=== PATIENT | female | born 1975 | race Caucasian/White ===

== ENCOUNTER 2016-06-28 22:00 | Emergency (ER) | payer OTHER ==
[2016-06-29 01:52] LABS: HEMOGLOBIN 11.8 gm/dl (12.3-15.3); RED BLOOD COUNT 3.74 M/UL (4.00-5.10); WHITE BLOOD COUNT 4.1 K/UL (4.5-11.0)
[2016-06-29 02:17] LABS: BUN/CREATININE RATIO 13 (0-10)
== END 2016-06-29 05:00 | disposition home or self-care (01) ==
LOC: ER1 22:00
PROVIDERS: Family Medicine
DX: J10.1 Influenza due to other identified influenza virus with other respiratory manifestations (principal); E03.9 Hypothyroidism, unspecified; M32.9 Systemic lupus erythematosus, unspecified; Z79.899 Other long term (current) drug therapy
CPT/HCPCS: 36415; 70450; 71010; 80053; 81001; 82550; 82553; 83605; 83874; 84484; 84703; 85025; 87077; 87086; 87186; 96361; 96372; 96374; 96375; 99284; J2270; J2405; J7050; Q9962

== ENCOUNTER 2016-08-20 10:28 | Emergency (ER) | payer OTHER ==
[2016-08-20 12:02] LABS: HEMOGLOBIN 12.6 gm/dl (12.3-15.3); RED BLOOD COUNT 4.03 M/UL (4.00-5.10); WHITE BLOOD COUNT 8.6 K/UL (4.5-11.0)
[2016-08-20 12:22] LABS: BUN/CREATININE RATIO 17 (0-10)
== END 2016-08-20 16:07 ==
LOC: ER1 10:28
PROVIDERS: Emergency Medicine
DX: R51 Headache (principal); H70.93 Unspecified mastoiditis, bilateral; E16.2 Hypoglycemia, unspecified; H53.2 Diplopia; E03.9 Hypothyroidism, unspecified; M19.90 Unspecified osteoarthritis, unspecified site; M06.9 Rheumatoid arthritis, unspecified; Z79.899 Other long term (current) drug therapy
CPT/HCPCS: 36415; 70551; 80048; 85025; 87040; 96374; 96375; 99285; J0696; J2060; J7050

== ENCOUNTER 2021-05-22 21:52 | Emergency (ER) | payer OTHER ==
[2021-05-23] MEDS ORDERED: MOBIC15 MG PO (02:53)
== END 2021-05-23 03:16 | disposition home or self-care (01) ==
LOC: ER1 21:52
DX: S20.211A Contusion of right front wall of thorax, initial encounter (principal); W01.0XXA Fall on same level from slipping, tripping and stumbling without subsequent striking against object, initial encounter; Y92.009 Unspecified place in unspecified non-institutional (private) residence as the place of occurrence of the external cause
CPT/HCPCS: 71260; 73080; 96372; 99284; J2270; Q9967

== ENCOUNTER → 2021-05-31 | Outpatient (CLI) | payer OTHER ==
[~2021-05-31] MED LIST: MOBIC15 MG PO
== END ==
LOC: EXRD 09:37
DX: R10.11 Right upper quadrant pain (principal); R10.811 Right upper quadrant abdominal tenderness; K76.0 Fatty (change of) liver, not elsewhere classified
CPT/HCPCS: 76705

== ENCOUNTER 2021-12-28 19:28 | Emergency (ER) | payer OTHER ==
[2021-12-28 20:42] LABS: HEMOGLOBIN 13.4 gm/dl (12.3-15.3); RED BLOOD COUNT 4.34 M/UL (4.00-5.10)
[2021-12-28 21:04] LABS: BUN/CREATININE RATIO 14 (0-10)
[2021-12-28 22:10] LABS: BORDETELLA PARAPERTUSSIS Not Detected (Not Detectd); BORDETELLA PERTUSSIS Not Detected (Not Detectd); CHLAMYDIA PNEUMONIAE Not Detected (Not Detectd); CORONAVIRUS HKU1 Not Detected (Not Detectd); CORONAVIRUS NL63 Not Detected (Not Detectd); CORONAVIRUS OC43 Not Detected (Not Detectd); CORONOAVIRUS 229E Not Detected (Not Detectd); HUMAN METAPNEUMOVIRUS Not Detected (Not Detectd); HUMAN RHINOVIRUS/ENTEROVIRUS Not Detected (Not Detectd); INFLUENZA A Not Detected (Not Detectd); INFLUENZA B Not Detected (Not Detectd); MYCOPLASMA PNEUMONIAE Not Detected (Not Detectd); PARAINFLUENZA VIRUS 1 Not Detected (Not Detectd); PARAINFLUENZA VIRUS 2 Not Detected (Not Detectd); PARAINFLUENZA VIRUS 3 Not Detected (Not Detectd); PARAINFLUENZA VIRUS 4 Not Detected (Not Detectd); RESPIRATORY SYNCYTIAL VIRUS Not Detected (Not Detectd)
[2021-12-30] MEDS ORDERED: KLONOPIN0.5 MG PO (17:17)
[2021-12-30] MEDS ORDERED: LAMICTAL25 MG PO (17:18)
[2021-12-30] MEDS ORDERED: HYDROCODON-ACE1 EAC6 PO (17:18)
[2021-12-30] MEDS ORDERED: VITAMIN B-121000 MCG PO (17:18)
[2021-12-30] MEDS ORDERED: LEVOTHYROXINE200 MC1 PO (17:18)
[2021-12-30] MEDS ORDERED: PROMETHAZINE12.5 M1 PO (17:18)
[2021-12-30] MEDS ORDERED: IBUPROFEN200 MG PO (17:19)
[2021-12-30] MEDS ORDERED: TYLENOL325 MG PO (17:19)
== END 2021-12-29 | disposition home or self-care (01) ==
LOC: ER1 19:28
PROVIDERS: Family Medicine; Nurse Practitioner
DX: R50.9 Fever, unspecified (principal); R05.9 Cough, unspecified; R09.81 Nasal congestion; M79.604 Pain in right leg; F11.90 Opioid use, unspecified, uncomplicated; G89.29 Other chronic pain; R51.9 Headache, unspecified; Z20.822 Contact with and (suspected) exposure to COVID-19
CPT/HCPCS: 71045; 80053; 81001; 83605; 85025; 87040; 87086; 87633; 96374; 96375; 99283; U0002

== ENCOUNTER 2021-12-30 11:10 | Inpatient (IN) | payer OTHER ==
[~2021-12-30] VITALS: Ht 160 cm; Wt 72.6 kg
[2021-12-30 12:39] LABS: HEMOGLOBIN 11.9 gm/dl (12.3-15.3); RED BLOOD COUNT 3.93 M/UL (4.00-5.10)
[2021-12-30 12:40] LABS: WHITE BLOOD COUNT 8.1 K/UL (4.5-11.0)
[2021-12-30 13:05] LABS: BUN/CREATININE RATIO 11 (0-10)
[2021-12-30 15:36] LABS: CRYPTOCOCCUS NEOFORMANS/GATTII Not Detected (Negative); CYTOMEGALOVIRUS Not Detected (Negative); ENTEROVIRUS Not Detected (Negative); ESCHERICHIA COLI K1 Not Detected (Negative); HAEMOPHILUS INFLUENZAE Not Detected (Negative); HERPES SIMPLEX VIRUS 1 Not Detected (Negative); HERPES SIMPLEX VIRUS 2 Not Detected (Negative); HUMAN HERPESVIRUS 6 Not Detected (Negative); HUMAN PARECHOVIRUS Not Detected (Negative); LISTERIA MONOCYTOGENES Not Detected (Negative); NEISERRIA MENINGITIDIS Not Detected (Negative); STREPTOCOCCUS AGALACTIAE Not Detected (Negative); STREPTOCOCCUS PNEUMONIAE Not Detected (Negative); VARICELLA ZOSTER VIRUS Not Detected (Negative)
[2021-12-30 15:56] LABS: GLUCOSE,CSF 53 mg/dL (50-80); TOTAL PROTEIN,CSF 70 mg/dL (20-45)
[2021-12-30 16:07] LABS: WBC (AUTOMATED 198 10^3 (0-5); WBC (AUTOMATED 214 10^3 (0-5)
[2021-12-30] MEDS ORDERED: KLONOPIN0.5 MG PO (17:17)
[2021-12-30] MEDS ORDERED: LEVOTHYROXINE200 MC1 PO (17:18)
[2021-12-30] MEDS ORDERED: VITAMIN B-121000 MCG PO (17:18)
[2021-12-30] MEDS ORDERED: PROMETHAZINE12.5 M1 PO (17:18)
[2021-12-30] MEDS ORDERED: HYDROCODON-ACE1 EAC6 PO (17:18)
[2021-12-30] MEDS ORDERED: LAMICTAL25 MG PO (17:18)
[2021-12-30] MEDS ORDERED: IBUPROFEN200 MG PO (17:19)
[2021-12-30] MEDS ORDERED: TYLENOL325 MG PO (17:19)
[2021-12-31 04:22] LABS: HEMOGLOBIN 11.9 gm/dl (12.3-15.3); RED BLOOD COUNT 3.91 M/UL (4.00-5.10)
[2021-12-31 04:41] LABS: WHITE BLOOD COUNT 4.4 K/UL (4.5-11.0)
[2021-12-31 04:43] LABS: BUN/CREATININE RATIO 13 (0-10)
[2022-01-01 04:42] LABS: HEMOGLOBIN 11.4 gm/dl (12.3-15.3); RED BLOOD COUNT 3.78 M/UL (4.00-5.10)
[2022-01-01 04:43] LABS: WHITE BLOOD COUNT 9.6 K/UL (4.5-11.0)
[2022-01-01 05:21] LABS: BUN/CREATININE RATIO 12 (0-10)
[2022-01-02 04:47] LABS: BUN/CREATININE RATIO 21 (0-10)
[2022-01-03] MEDS ORDERED: KEPPRA500 MG PO (08:29)
== END 2022-01-03 13:14 | disposition home or self-care (01) | DRG 75 ==
LOC: ER1 11:10 → CDU 16:59 → M/S 16:59
PROVIDERS: Physician Assistant; ADMIT Internal Medicine Infectious Disease
PROC: 009U3ZX Drainage of Spinal Canal, Percutaneous Approach, Diagnostic (ICD-10-PCS; principal; 2022-01-01)
PROC: B01B1ZZ Fluoroscopy of Spinal Cord using Low Osmolar Contrast (ICD-10-PCS; 2022-01-01)
DX: A87.9 Viral meningitis, unspecified (principal); B19.10 Unspecified viral hepatitis B without hepatic coma; G40.909 Epilepsy, unspecified, not intractable, without status epilepticus; H70.13 Chronic mastoiditis, bilateral; M32.9 Systemic lupus erythematosus, unspecified; E03.9 Hypothyroidism, unspecified; M06.9 Rheumatoid arthritis, unspecified; Z90.710 Acquired absence of both cervix and uterus
CPT/HCPCS: 36415; 62270; 70450; 70553; 71045; 80048; 80053; 80202; 80307; 81001; 82945; 83605; 83735; 84157; 84443; 85025; 85610; 85730; 86140; 87040; 87070; 87205; 87483; 89051; 93005; 96365; 96374; 96375; 96376; 99285; A9577; G0378; J0696; J1100; J1170; J1885; J1953; J2270; J2405; J3370; J7040; J7070; U0002

== ENCOUNTER 2022-01-08 16:48 | Emergency (ER) | payer OTHER ==
[~2022-01-08 16:48] MED LIST changes: +HYDROCODON-ACE1 EAC6 PO; +IBUPROFEN200 MG PO; +KEPPRA500 MG PO; +KLONOPIN0.5 MG PO; +LAMICTAL25 MG PO; +LEVOTHYROXINE200 MC1 PO; +PROMETHAZINE12.5 M1 PO; +TYLENOL325 MG PO; +VITAMIN B-121000 MCG PO
[2022-01-08 19:15] LABS: HEMOGLOBIN 13.8 gm/dl (12.3-15.3); RED BLOOD COUNT 4.5 M/UL (4.00-5.10); WHITE BLOOD COUNT 5.7 K/UL (4.5-11.0)
[2022-01-08 19:37] LABS: BUN/CREATININE RATIO 22 (0-10)
[2022-01-08] MEDS ORDERED: ROBAXIN 750 MG750 MG PO (22:30)
== END 2022-01-08 22:50 | disposition home or self-care (01) ==
LOC: ER1 16:48
PROVIDERS: Family Medicine
DX: R51.9 Headache, unspecified (principal); M54.2 Cervicalgia; G89.29 Other chronic pain; F11.20 Opioid dependence, uncomplicated; L93.0 Discoid lupus erythematosus
CPT/HCPCS: 70450; 72125; 80048; 85025; 96372; 96374; 96375; 99284; J0780; J1100; J1200; J1885; J2360